=== PATIENT | female | born 1980 | race Caucasian/White ===

== ENCOUNTER 2017-08-24 11:05 | Emergency (ER) | payer BC ==
[~2017-08-24] VITALS: Ht 165.1 cm; Wt 53.3 kg
[~2017-08-24 11:05] MED LIST: CIPRO500 M1 PO; CIPROFLOXACIN500 M1 PO; DOCUSATE SODIU100 MG PO; ENDOCET 5-3251 EACH PO; IBUPROFEN800 MG PO; PAXIL10 MG; PAXIL10 MG PO; PERCOCET 5-3251 EACH PO; PERCOCET 5/31 TABLET PO; PERCOCET 7.5-31 EACH PO; PHENAZOPYRIDIN100 MG PO; TOPAMAX; TOPAMAX50 MG PO; TOPIRAMATE25 MG PO
[2017-08-24 14:38] VITALS: BP 148/103
== END 2017-08-24 14:39 | disposition home or self-care (01) ==
LOC: EME 11:05
DX: G43.909 Migraine, unspecified, not intractable, without status migrainosus (principal); I10 Essential (primary) hypertension; F41.9 Anxiety disorder, unspecified; Z87.448 Personal history of other diseases of urinary system; Z86.69 Personal history of other diseases of the nervous system and sense organs; Z90.49 Acquired absence of other specified parts of digestive tract
CPT/HCPCS: 99281; 99284; J1200; J2765; J7030

== ENCOUNTER 2017-09-10 12:05 | Emergency (ER) | payer BC ==
[~2017-09-10] VITALS: Ht 165.1 cm; Wt 54.5 kg
[2017-09-10 12:27] LABS: HEMATOCRIT 39.1 % (36.0-46.0); HEMOGLOBIN 13.5 G/DL (11.9-15.5); MCH 32.1 PG (29.0-34.0); MCHC 34.5 G/DL (30.0-36.0); MCV 93.1 FL (83-99); PLATELET COUNT 211 K/uL (156-360); RBC DIS.WIDTH-CV 12.9 % (11.8-14.6); WHITE BLOOD COUNT 5.3 K/uL (4.1-10.2)
[2017-09-10] MEDS ORDERED: SUMATRIPTAN SU100 MG PO (12:35)
[2017-09-10 12:36] LABS: ALBUMIN 3.7 g/dL (3.2-4.8); CHLORIDE 108 mEq/L (99-109); POTASSIUM 4.2 mEq/L (3.7-5.4); SODIUM 141 mEq/L (136-147)
[2017-09-10] MEDS ORDERED: PREDNISONE10 MG PO (12:37)
[2017-09-10] MEDS ORDERED: CYCLOBENZAPRINE10 MG PO (12:37)
[2017-09-10 12:38] LABS: GLUCOSE 88 mg/dL (70-99); TOTAL PROTEIN 6.5 g/dL (6.4-8.3)
[2017-09-10 12:40] LABS: TOTAL BILIRUBIN 0.2 mg/dL (0.0-1.0)
[2017-09-10 12:42] LABS: ALKALINE PHOSPHATASE 87 IU/L (3-129); CREATININE 0.7 mg/dL (0.6-1.3); GFR ESTIMATE (CALCULATED) > 59 mL/min/
[2017-09-10 12:43] LABS: UREA NITROGEN (BUN) 23 mg/dL (9-23)
[2017-09-10 12:44] LABS: AST (GOT) 19 IU/L (2-34)
[2017-09-10 12:45] LABS: ALT (GPT) 19 IU/L (3-49)
[2017-09-10 12:55] LABS: APPEARANCE SL.HAZY ((CLEAR)); BILIRUBIN NEGATIVE; BLOOD NEGATIVE; COLOR YELLOW ((YELLOW)); GLUCOSE (STRIP) NEGATIVE; KETONES NEGATIVE; LEUKOCYTES NEGATIVE; NITRITE NEGATIVE; PROTEIN (STRIP) NEGATIVE; SPECIFIC GRAVITY 1.025 (1.000-1.030); UROBILINOGEN 0.2 MG/DL (0.2-1.0)
[2017-09-10 13:00] LABS: BACTERIA RARE /HPF; EPITHELIAL CELLS 2+ /HPF; MUCUS TRACE /LPF; RED BLOOD CELLS 0-5 /HPF (0-5); UCUL ADDED? NO; WHITE BLOOD CELLS 0-5 /HPF (0-5)
[2017-09-10] MEDS ORDERED: BENTYL10 MG PO (13:27)
[2017-09-10] MEDS ORDERED: COLACE100 MG PO (13:27)
[2017-09-10 13:41] VITALS: BP 134/97
== END 2017-09-10 13:42 | disposition home or self-care (01) ==
LOC: EME 12:05
DX: K59.00 Constipation, unspecified (principal); I10 Essential (primary) hypertension; F41.9 Anxiety disorder, unspecified; G43.909 Migraine, unspecified, not intractable, without status migrainosus; Z87.442 Personal history of urinary calculi; Z90.49 Acquired absence of other specified parts of digestive tract; Z90.710 Acquired absence of both cervix and uterus
CPT/HCPCS: 74176; 80053; 81003; 85027; 99281; 99284